=== PATIENT | female | born 1940 | race African-American/Black ===

== ENCOUNTER 2022-02-10 05:47 | Inpatient (IN) ==
[2022-02-04 11:22] LABS: Bacteria,Urine Occasional /HPF (Few); Bilirubin,Urine Negative (Negative); Blood, Urine Small mg/dL (Negative); Glucose,Urine (UA) Negative (Negative); Ketones,Urine Negative (Negative); Mucus,Urine Occasional /LPF (Occasional); Nitrite,Urine Positive (Negative); Protein,Urine Negative (Negative); RBC,Urine 11 /HPF (0-4); Squamous Epithelial Cell,Urine Occasional /HPF (0-10); Urine Appearance Slightly Hazy (Clear); Urine Color Yellow (Yellow); Urine Specific Gravity 1.013 (1.001-1.035); Urine Urobilinogen < 2.0 eU/dL (<2.0)
[2022-02-04 12:22] LABS: Basophils # 0.1 10*3/uL (0.0-0.2); Eosinophils # 0.5 10*3/uL (0.0-0.87); Eosinophils % 8.3 % (0.00-10.9); Hematocrit 34.6 VOL% (35.7-47.0); Hemoglobin 10.8 GM/DL (12.0-16.0); Immature Granulocytes % 0.3 %; Immature Granulocytes Absolute 0.02 #; Lymphocytes # 2.1 10*3/uL (1.4-4.0); Lymphocytes % 34.8 % (21.3-54.2); Mean Corpuscular HGB Conc 31.2 GM/DL (32-36); Mean Corpuscular Volume 93.8 FL (87-102); Monocytes # 0.8 10*3/uL (0.11-0.8); Monocytes % 12.6 % (1.7-12.7); Platelet Count 223 T/CUMM (130-400); Red Blood Count 3.69 MC/CUMM (3.8-5.5); Red Cell Distribution Width 15.9 % (9.3-17.3)
[2022-02-04 12:34] LABS: Albumin 3.3 G/DL (3.4-5.0); Bilirubin,Total 0.5 MG/DL (0.20-1.00); Calcium 9.2 MG/DL (8.5-10.1); Osmolality,Calculated 280.3 MOS/KG (273-304); Potassium 3.9 MMOL/L (3.5-5.1); Total Protein 6.8 G/DL (6.4-8.2)
[2022-02-04 12:40] LABS: PT Patient Result 10.9 SECS (10.1-12.1); Partial Thromboplastin Time 25.8 SECS (23.7-32.9)
[2022-02-10] MEDS ORDERED: VANCOMYCIN INJ 1,000 MG in SODIUM CHLORIDE 0.9% 250 ML IV ONE (06:00)
[2022-02-10] MEDS ORDERED: DIAZEPAM 5 MG TABLET PO ONE (06:51)
[2022-02-10] MEDS ORDERED: FAMOTIDINE 20 MG TABLET PO ONE (06:51)
[2022-02-10] MEDS ORDERED: GABAPENTIN 400 MG CAPSULE PO ONE (06:51)
[2022-02-10] MEDS ORDERED: ACETAMINOPHEN 500 MG TABLET PO ONE (06:51)
[2022-02-10] MEDS ORDERED: ONDANSETRON 4 MG/2 ML VIAL ONE (07:11)
[2022-02-10] MEDS ORDERED: propofoL 200 MG/20 ML VIAL IV ONE ×2 (07:11→09:07)
[2022-02-10] MEDS ORDERED: LIDOCAINE 2% 5 ML VIAL ONE (07:11)
[2022-02-10] MEDS ORDERED: KETAMINE 500 MG/10 ML VIAL ONE (07:11)
[2022-02-10] MEDS ORDERED: ePHEDrine 50 MG/ML VIAL ONE (07:14)
[2022-02-10] MEDS: LACTATED RINGERS 1,000 ML IV SCH ×3 (07:21→15:35)
[2022-02-10] MEDS ORDERED: ROPIVACAINE 0.5% 30 ML VIAL ONE (07:35)
[2022-02-10] MEDS ORDERED: LIDOCAINE 1% 5 ML VIAL ONE (07:35)
[2022-02-10] MEDS ORDERED: DEXAMETHASONE 4 MG/1 ML VIAL ONE (07:35)
[2022-02-10] MEDS ORDERED: buprenorphine HCL 0.3 MG/ML VIAL ONE (07:52)
[2022-02-10] MEDS ORDERED: fentaNYL 100 MCG/2 ML VIAL ONE (07:54)
[2022-02-10] MEDS ORDERED: NEOMYCIN/POLYMYXIN/BACITRACIN OINT 28.4 GM TUBE TOP ONE (08:17)
[2022-02-10] MEDS ORDERED: MIDAZOLAM 2 MG/2 ML VIAL ONE (08:26)
[2022-02-10] MEDS ORDERED: NITROGLYCERIN SL 0.4 MG TABLET SL PRN (08:41)
[2022-02-10] MEDS ORDERED: diphenhydrAMINE CAP 25 MG CAPSULE PO PRN (08:43)
[2022-02-10] MEDS ORDERED: ZALEPLON 5 MG CAPSULE PO PRN (08:43)
[2022-02-10] MEDS ORDERED: ONDANSETRON 4 MG/2 ML VIAL IV PRN (08:43)
[2022-02-10] MEDS ORDERED: MORPHINE 2 MG/1 ML SYRINGE IV PRN ×2 (08:43)
[2022-02-10] MEDS ORDERED: MAGNESIUM HYDROXIDE SUSP 30 ML UDCUP PO PRN (08:43)
[2022-02-10] MEDS ORDERED: SEVOFLURANE 1 UNIT/15 MINUTE INH ONE (09:07)
[2022-02-10] MEDS ORDERED: ROCURONIUM 50 MG/5 ML VIAL IV ONE (09:08)
[2022-02-10] MEDS ORDERED: SUCCINYLCHOLINE 200 MG/10 ML VIAL ONE (09:08)
[2022-02-10] MEDS ORDERED: TRANEXAMIC ACID 1,000 MG/10 ML VIAL ONE (09:32)
[2022-02-10] MEDS ORDERED: SUGAMMADEX 200 MG/2 ML VIAL IV ONE (10:14)
[2022-02-10] MEDS: KETOROLAC 15 MG/1 ML VIAL IV SCH ×3 (12:54→21:42)
[2022-02-10] MEDS: DOCUSATE SODIUM 100 MG CAPSULE PO SCH (21:39)
[2022-02-10] MEDS: ATORVASTATIN 40 MG TABLET PO SCH (21:39)
[2022-02-11] MEDS: FONDAPARINUX 2.5 MG/0.5 ML SYRINGE SUBCUT SCH (05:28)
[2022-02-11 05:31] LABS: Basophils % 0.3 % (0.0-0.8); Eosinophils # 0.1 10*3/uL (0.0-0.87); Eosinophils % 0.5 % (0.00-10.9); Hemoglobin 9.2 GM/DL (12.0-16.0); Immature Granulocytes % 0.3 %; Immature Granulocytes Absolute 0.03 #; Lymphocytes # 1.9 10*3/uL (1.4-4.0); Lymphocytes % 18.6 % (21.3-54.2); Mean Corpuscular HGB Conc 30.7 GM/DL (32-36); Mean Corpuscular Volume 96.8 FL (87-102); Mean Platelet Volume 11.9 FL (9.6-12.0); Monocytes # 1.1 10*3/uL (0.11-0.8); Monocytes % 10.8 % (1.7-12.7); Neutrophils % 69.5 % (38.7-73.9); Platelet Count 204 T/CUMM (130-400); Red Cell Distribution Width 15.9 % (9.3-17.3); White Blood Count 10.2 T/CUMM (4-12)
[2022-02-11 06:04] LABS: Calcium 8.7 MG/DL (8.5-10.1); Osmolality,Calculated 285.1 MOS/KG (273-304); Potassium 3.9 MMOL/L (3.5-5.1)
[2022-02-11] MEDS: DOCUSATE SODIUM 100 MG CAPSULE PO SCH ×3 (08:01→20:27)
[2022-02-11] MEDS: carvediloL 6.25 MG TABLET PO SCH ×3 (08:01→17:00)
[2022-02-11] MEDS: LACTATED RINGERS 1,000 ML IV SCH (08:03)
[2022-02-11] MEDS ORDERED: FUROSEMIDE 20 MG TABLET PO PRN (08:41)
[2022-02-11] MEDS: IRON (CARBONYL)/VIT C/B12/FA TABLET PO SCH (09:08)
[2022-02-11] MEDS: LOSARTAN 25 MG TABLET PO SCH (09:08)
[2022-02-11] MEDS: MULTIVITAMIN (CENTRUM) TABLET PO SCH (09:08)
[2022-02-11] MEDS: OMEGA 3 ACID ETHYL ESTERS 1 GM CAPSULE PO SCH (09:08)
[2022-02-11] MEDS: ATORVASTATIN 40 MG TABLET PO SCH (20:27)
[2022-02-11] MEDS ORDERED: ASPIRIN EC 81 MG TABLET PO SCH (21:00)
[2022-02-12 05:52] LABS: Basophils # 0.1 10*3/uL (0.0-0.2); Basophils % 0.4 % (0.0-0.8); Eosinophils # 0.1 10*3/uL (0.0-0.87); Eosinophils % 1.2 % (0.00-10.9); Hematocrit 26.1 VOL% (35.7-47.0); Hemoglobin 8.4 GM/DL (12.0-16.0); Immature Granulocytes % 0.5 %; Immature Granulocytes Absolute 0.06 #; Lymphocytes # 2.1 10*3/uL (1.4-4.0); Lymphocytes % 18.9 % (21.3-54.2); Mean Corpuscular HGB Conc 32.2 GM/DL (32-36); Mean Corpuscular Volume 92.2 FL (87-102); Mean Platelet Volume 11.9 FL (9.6-12.0); Monocytes # 1.6 10*3/uL (0.11-0.8); Monocytes % 13.8 % (1.7-12.7); Neutrophils % 65.2 % (38.7-73.9); Platelet Count 172 T/CUMM (130-400); Red Blood Count 2.83 MC/CUMM (3.8-5.5); Red Cell Distribution Width 15.9 % (9.3-17.3); White Blood Count 11.2 T/CUMM (4-12)
[2022-02-12] MEDS: FONDAPARINUX 2.5 MG/0.5 ML SYRINGE SUBCUT SCH (07:26)
[2022-02-12] MEDS: MULTIVITAMIN (CENTRUM) TABLET PO SCH (08:19)
[2022-02-12] MEDS: OMEGA 3 ACID ETHYL ESTERS 1 GM CAPSULE PO SCH (08:19)
[2022-02-12] MEDS: LOSARTAN 25 MG TABLET PO SCH (08:19)
[2022-02-12] MEDS: carvediloL 6.25 MG TABLET PO SCH (08:19)
[2022-02-12] MEDS: IRON (CARBONYL)/VIT C/B12/FA TABLET PO SCH (08:19)
[2022-02-12] MEDS: DOCUSATE SODIUM 100 MG CAPSULE PO SCH (08:19)
[2022-02-12 11:17] VITALS: BP 149/58
== END 2022-02-12 16:15 | disposition home health service (06) | DRG 470 ==
LOC: N.SDSINP 05:47 → N.3E 18:12
PROVIDERS: ADMIT Orthopaedic Surgery; ATTEND Orthopaedic Surgery